=== PATIENT | male | born 1965 | race Caucasian/White ===

== ENCOUNTER 2020-09-08 19:09 | Emergency (ER) | payer OTHER ==
[2020-09-08 19:20] VITALS: BP 130/83; PULSE 75; TEMP 98.4; BMI 21.6
== END 2020-09-08 20:56 | disposition home or self-care (01) ==
LOC: JERFT 19:09 → JER 19:09 → JERFT 20:56
PROC: 0HQGXZZ Repair Left Hand Skin, External Approach (ICD-10-PCS; principal; 2020-09-08)
DX: S61.412A Laceration without foreign body of left hand, initial encounter (principal); W26.0XXA Contact with knife, initial encounter
CPT/HCPCS: 99282-25